=== PATIENT | male | born 1960 | race Caucasian/White ===

== ENCOUNTER 2024-03-22 11:45 | Day surgery (SDC) | payer OTHER ==
[2024-03-22] MEDS ORDERED: LIDOCAINE HCL 2% 100 MG/5 ML IJ ONE (11:46)
[2024-03-22] MEDS ORDERED: DIPRIVAN 200 MG/20 ML IV ONE (14:24)
[2024-03-22] MEDS ORDERED: Xylocaine-Mpf 2% 5 Ml Vial ONE (14:49)
[2024-03-22] MEDS ORDERED: Lactated Ringers 1,000 ML IV ONE (14:57)
--- NOTE | 2024-03-22 16:42 | XRAY ---
Indication: Bilateral L4-S1 MBB. Intraoperative fluoroscopy provided for 9 seconds. Single digital spot image submitted for interpretation demonstrates posterior needle tips projecting over the expected left and right L4-S1 nerve roots. Correlate with intraoperative findings/report.
--- NOTE | 2024-03-22 17:06 | XRAY ---
9 seconds of fluoroscopy was used in surgery for a bilateral L4-S1 MBB.
== END 2024-03-22 14:57 | disposition home or self-care (01) ==
LOC: SDC-PAIN 11:45
PROVIDERS: ATTEND Psychiatry & Neurology Pain Medicine
DX: M47.816 Spondylosis without myelopathy or radiculopathy, lumbar region (principal)
CPT/HCPCS: 64493; 64494; 72020; 77002; J2704

== ENCOUNTER 2024-07-19 13:24 | Day surgery (SDC) | payer MEDICARE, OTHER ==
[2024-07-19] MEDS ORDERED: LIDOCAINE HCL 1% 50 MG/5 ML VL PF IJ ONE (13:25)
[2024-07-19] MEDS ORDERED: Depo-Medrol 40 MG/ML IM ONE (13:25)
[2024-07-19] MEDS ORDERED: BUPIVACAINE 0.5% VIAL IJ ONE (13:25)
[2024-07-19] MEDS ORDERED: Lactated Ringers 1,000 ML IV ONE (15:45)
[2024-07-19] MEDS ORDERED: DIPRIVAN 200 MG/20 ML IV ONE (16:36)
--- NOTE | 2024-07-19 17:11 | XRAY ---
Indication: Left L4-S1 RFA. Intraoperative fluoroscopy provided for 13 seconds. 3 digital spot images submitted for interpretation demonstrates posterior needle tips projecting over the expected left L4-S1 nerve roots. Correlate with intraoperative findings/report.
--- NOTE | 2024-07-20 10:03 | XRAY ---
13 seconds of fluoroscopy was used in surgery for a left L4-S1 RFA.
== END 2024-07-19 17:04 | disposition home or self-care (01) ==
LOC: SDC-PAIN 13:24
PROVIDERS: ATTEND Psychiatry & Neurology Pain Medicine
DX: M47.816 Spondylosis without myelopathy or radiculopathy, lumbar region (principal)
CPT/HCPCS: 64635; 64636; 72100; 77002; J2001; J2704